=== PATIENT | male | born 1960 | race Native Hawaiian/Other Pacific Islander ===

== ENCOUNTER 2019-10-20 17:48 | Inpatient (IN) | payer OTHER ==
[~2019-10-20] VITALS: Ht 121.9 cm; Wt 76.7 kg
[2019-10-20] VITALS (8 sets, daily range): BP systolic 131–1151; BP diastolic 65–87; TEMP 97.3–97.8; Ht 121.9 cm; Wt 76.7 kg
[~2019-10-20 17:48] MED LIST: ACET-206 PO; ACYCLOVIR5 % EX; AMLODIPINE BESYLATE PO; ASA LOW DOSE81 MG PO; ASPI81TA4 PO; ATOR20TA2 PO; BUSP5TAB2 PO; CARV12.5 PO; CARV6.25 PO; CHOL100034 PO; CLON0.1T16 PO; CLOP75TA2 PO; DOXYCYCL HYC100 MG PO; DOXYCYCLINE100 MG PO; ESCI10TA PO; FINGERSTIX; FOLI1TAB26 PO; HEPA5000 SC; HEPARIN SO5000 UNIT2 SC; HYDRALAZINE10 MG PO; INSU100P SC; INSU300I SC; INSUINJ20 SC; IPRATROPIUM/ INH; LACTSYP31 PO; LIPITOR40 MG PO; METF500T PO; MIRTAZAPINE7.5 MG PO; NEURONTIN 100M100 MG PO; PANTOPRAZOLE 40MG TA PO; PRED10TA27 PO; TRESIBA100 UNIT/M SC
--- NOTE | 2019-10-20 18:30 | NUR ---
GRAPHIC SPECIALIST ARRIVED IN ICU NOT LONG AFTER PATIENT ARRIVED, DOMINIC CABALLERO,RN GAVE DETAILED REPORT ON PATIENT IN BED #1. PT IS LYING IN BED, NAD NOTED. XRAY ENTERS ICU, CHEST XRAY PERFORMED WITHOUT DIFFICULTY, PT IS CALM AND COOPERATIVE. GRAPHIC SPECIALIST AND DOMINIC ATTEMPT IV SITE, DRAWING FOR LABS AT SAME TIME. 2 WORKING IV SITES ESTABLISHED, BOTH FLUSH WITHOUT DIFFICULTY. IVF STARTED, INFUSING IN IV SITE TO LEFT FOREARM WITHOUT DIFFICULTY. PT IS PALE TO FACE, MISSING SEVERAL TEETH, SCARS NOTED TO LOWER CHIN. PT IS BILATERAL AMPUTEE, SORES NOTED TO BOTH KNEE AREAS, NECROTIC TISSUE NOTED TO RIGHT LOWER EXT. SMALL AMT OF SEROUS FLUID DRAINING FROM SITE. SMALL AREA ON LEFT BUTTOCK SIZE [id number] 2ND DEGREE DECUBITUS NO DRAINAGE NOTED. MODERATE SIZE UMBILICAL HERNIA NOTED, PROTRUDING OUTWARD, PT DENIES PAIN. LESIONS AND ABRASIONS NOTED TO BUE, NONE ARE CURRENTLY DRAINING, MOST ARE SCABBED OVER.
--- NOTE | 2019-10-20 19:07 | NUR ---
CALLED FOR REPORT AT [facility] AT 1640. MAMTA NURSE STATED PT WAS EATING SUPPER AND WOULD BRING WHEN PATIENT FINISHED. 1730- PT TO ICU BED 1 FROM [facility]. PT HOOKED TO MONITORS AND VITALS TAKEN. 1800- ORDERS REC'D AT THIS TIME. 1830- IV'S STARTED TO L FA WITH 20G ANGIOCATH, 2ND IV SITE STARTED TO R FA WITH 22G ANGIOCATH X 2 ATTEMPTS. 1840- LAB HERE TO DRAW AT TIME. 184- REPORT GIVEN TO ANNE PAIGE RN 1850- DR YIP AT BS.
[2019-10-20 19:28] LABS: PLATELET COUNT 388 K/uL (142-355)
[2019-10-20 20:10] LABS: POTASSIUM 5.1 mmol/L (3.6-5.2); SODIUM 135 mmol/L (136-145)
[2019-10-21] VITALS (26 sets, daily range): BP systolic 121–172; BP diastolic 54–90; TEMP 97.5–98.1
--- NOTE | 2019-10-21 03:00 | NUR ---
FIRST UNIT OF [facility] INFUSION COMPLETE, V/S WNL, NO S/SX OF REACTION NOTED
--- NOTE | 2019-10-21 04:45 | NUR ---
SECOND UNIT [facility] INFUSION COMPLETE, NO S/SX OF REACTION NOTED, V/S WNL
[2019-10-21 05:26] LABS: POTASSIUM 4.2 mmol/L (3.6-5.2)
[2019-10-21 05:39] LABS: PLATELET COUNT 368 K/uL (142-355)
--- NOTE | 2019-10-21 07:00 | NUR ---
PT RESTING ON R SIDE EYES CLOSED. RESP EVEN & UNLABORED. NO C/O PAIN. ROLLS SELF IN BED. NOTED SCABS TO R STUMP & SCAB/SCRATCH TO L STUMP. ? SCRATCH TO R SIDE,SEROUS DRAINAGE ON GOWN.CLEANED WITH NS.
--- NOTE | 2019-10-21 09:00 | NUR ---
PT RESTING ON R SIDE, EYES CLOSED. PT NPO FOR POSSIBLE EGD TODAY. PT TURNS SELF WELL IN BED. DR YIP IN TO SEE PT.
--- NOTE | 2019-10-21 11:00 | NUR ---
PT VOIDED IN DED, GOWN & BED SOAKED. HIT AT ME WHEN I TRIED TO CHANGE HIM. PT SAT UP ON SIDE OF BED & REFUSED TO LAY DOWN, REFUSED TO PUT DRY GOWN ON. ATTEMPTED TO CALL DR YIP.
--- NOTE | 2019-10-21 12:15 | NUR ---
LAB HERE FOR BLOOD DRAW. PT SITTING UP ON SIDE OF BED, REFUSES TO ALLOW HIMSELF TO BE CHANGED. PT WET. PT STATES' IT IS A JOKE'.
--- NOTE | 2019-10-21 12:40 | NUR ---
DR CHUN IN TO SEE PT. PT REFUSED TO ALLOW DR CHUN TO EXAMINE HIM FOR POSSIBLE EGD & REFUSED TO ALLOW HIM TO EXAM HIS R STUMP WOUND.PT REFUSED TO LIE DOWN. REFUSED TO ALLOW ME TO CHANGE HIM. MED TILE CONDUIT LAYER TRIED TO HELP. PT REFUSED.
--- NOTE | 2019-10-21 13:00 | NUR ---
PT'S NIECE IN TO SEE PT. PT REFUSED HER HELP AT FIRST, AFTER MUCH COAXING PT ALLOWED NIECE TO FINISH CHANGING HIS BED, REFUSED A GOWN,LAY DOWN & COVERED UP ON A CHUX & COVERED WITH BLANKET & SHEET. ATTEMPTING TO REPORT TO DR YIP. UNABLE TO REACH AT THIS TIME.
--- NOTE | 2019-10-21 14:30 | NUR ---
DR YIP IN TO SEE PT. NEW ORDERS.
--- NOTE | 2019-10-21 15:08 | NUR ---
DR YIP BACK IN TO SEE PT, DISCUSSED PT'S REFUSAL FOR CONSULT WITH DR PANCHO CHUN & REFUSED TO ALLOW DR CHNU TO LOOK AT HIS STUMP WOUND. DISCUSSED MEDS.
--- NOTE | 2019-10-21 16:04 | NUR ---
ATTEMPTED TO EXAM PT'S STUMPS, & ATTEMPTED TO REPLACE PULSE OX ON PT. PT SAYS HARSHLY' DON'T START'. ENCOURAGED PT TO REST, PT SAT UP INBED,STUMPS DANGLING, NURSE TECH AT BS.
--- NOTE | 2019-10-21 16:17 | NUR ---
PT CONTINUES TO REFUSE CARE. MEDICATED WITH ATIVAN 1MG SIVP.
--- NOTE | 2019-10-21 18:00 | NUR ---
PT ALLOWED TECH TO HELP WITH URINAL VOIDED 500ML & THEN BACK TO SLEEP.
[2019-10-22] VITALS (13 sets, daily range): BP systolic 140–169; BP diastolic 62–83; TEMP 97.3–97.7
[2019-10-22 05:37] LABS: POTASSIUM 4.1 mmol/L (3.6-5.2)
[2019-10-22 05:40] LABS: PLATELET COUNT 373 K/uL (142-355)
--- NOTE | 2019-10-22 08:30 | NUR ---
PT RESTING IN LF WITH EYES CLOSED. DR YIP IN TO SEE PT.PT TO BE D/C'D BACK TO [facility].
--- NOTE | 2019-10-22 09:45 | NUR ---
PT FED SELF BREAKFAST. SITTING UP IN BED, USING URINAL FOR VOIDING THIS AM.
--- NOTE | 2019-10-22 12:43 | NUR ---
PT FED SELF LUNCH.DR YIP IN TO SEE PT. PT UP IN BS W/C.
--- NOTE | 2019-10-22 12:48 | NUR ---
REPORT CALLED TO TRACY MADERA RN.
--- NOTE | 2019-10-22 13:03 | NUR ---
IV D/C'D CANNULA INTACT. SITE SECURED.PT D/'D STABLE VIA WC TO BHU FOR READMISSION.
--- NOTE | 2019-10-22 15:00 | NUR ---
PT'S NIECE NOTIFIED OF TRANSFER BACK TO [facility].
== END 2019-10-22 13:02 | DRG 377 ==
LOC: ICU 17:48
PROVIDERS: ADMIT Internal Medicine Endocrinology, Diabetes & Metabolism
PROC: 30233N1 Transfusion of Nonautologous Red Blood Cells into Peripheral Vein, Percutaneous Approach (ICD-10-PCS; principal; 2019-10-20)
PROC: 30233N1 Transfusion of Nonautologous Red Blood Cells into Peripheral Vein, Percutaneous Approach (ICD-10-PCS; 2019-10-21)
DX: K92.2 Gastrointestinal hemorrhage, unspecified (principal); J69.0 Pneumonitis due to inhalation of food and vomit; D64.89 Other specified anemias; I25.10 Atherosclerotic heart disease of native coronary artery without angina pectoris; I10 Essential (primary) hypertension; E78.49 Other hyperlipidemia; I73.89 Other specified peripheral vascular diseases; N17.8 Other acute kidney failure; F31.5 Bipolar disorder, current episode depressed, severe, with psychotic features; N18.3 Chronic kidney disease, stage 3 (moderate); I12.9 Hypertensive chronic kidney disease with stage 1 through stage 4 chronic kidney disease, or unspecified chronic kidney disease; E11.22 Type 2 diabetes mellitus with diabetic chronic kidney disease; Z91.5 Personal history of self-harm; F17.200 Nicotine dependence, unspecified, uncomplicated; F11.20 Opioid dependence, uncomplicated; J44.9 Chronic obstructive pulmonary disease, unspecified; Z89.612 Acquired absence of left leg above knee; Z89.611 Acquired absence of right leg above knee
CPT/HCPCS: 80048; 80053; 81000; 84484; 85014; 85018; 85027; 86850; 86900; 86901; 86922; 87040; J1815; J2060; J3490; P9016